=== PATIENT | male | born 1995 | race African-American/Black ===

== ENCOUNTER 2017-06-21 22:32 | Emergency (ER) | payer OTHER | END 2017-06-21 23:20 | disposition home or self-care (01) | LOC: ERS 22:32 | DX: H60.92 Unspecified otitis externa, left ear (principal) | CPT/HCPCS: 99282 ==

== ENCOUNTER 2020-08-24 13:07 | Emergency (ER) | payer OTHER ==
[2020-08-24 18:46] LABS: SARS-CoV-2 MS2 Negative; SARS-CoV-2 N Gene Positive; SARS-CoV-2 S Gene Positive; SARS-CoV-2 by NAA DETECTED (NotDetected); SARS-CoV-2 orf1ab Positive
== END 2020-08-24 13:30 | disposition home or self-care (01) ==
LOC: ERS 13:07
DX: U07.1 COVID-19 (principal)
CPT/HCPCS: 87635; 99283; U0003